=== PATIENT | female | born 1945 | race Caucasian/White ===

== ENCOUNTER → 2023-09-03 11:26 | Outpatient (REF) | payer MEDICARE, SELFPAY | LOC: WDC 11:26 | PROVIDERS: ATTENDING PHYSICIAN Surgery | DX: Z12.31 Encounter for screening mammogram for malignant neoplasm of breast (principal) | CPT/HCPCS: 77063; 77067 ==

== ENCOUNTER 2023-10-11 08:03 | Outpatient (RCR) | payer MEDICARE, SELFPAY | END 2023-10-11 23:59 | disposition home or self-care (01) | LOC: RPT 08:03 | PROVIDERS: ATTENDING PHYSICIAN Surgery | DX: C50.412 Malignant neoplasm of upper-outer quadrant of left female breast (principal); Z17.0 Estrogen receptor positive status [ER+]; M25.612 Stiffness of left shoulder, not elsewhere classified; R29.3 Abnormal posture; Z73.6 Limitation of activities due to disability | CPT/HCPCS: 97112; 97163; 97530 ==

== ENCOUNTER → 2023-11-14 11:07 | Outpatient (REF) | payer MEDICARE, SELFPAY ==
[2023-11-14 12:50] LABS: HDL Cholesterol 44 mg/dl; LDL Cholesterol, Calculated 47 mg/dl; Total Cholesterol 105 mg/dl (50-199); Triglyceride 71 mg/dl (10-149); Very Low Density Lipoprotein 14 mg/dl (0-30)
== END ==
LOC: REG 11:07
PROVIDERS: ATTENDING PHYSICIAN Internal Medicine Cardiovascular Disease
DX: E78.5 Hyperlipidemia, unspecified (principal)
CPT/HCPCS: 36415; 80061

== ENCOUNTER 2023-11-16 08:57 | Outpatient (RCR) | payer MEDICARE, SELFPAY | END 2023-11-16 23:59 | disposition home or self-care (01) | LOC: RPT 08:57 | PROVIDERS: ATTENDING PHYSICIAN Surgery | DX: M25.612 Stiffness of left shoulder, not elsewhere classified (principal); R29.3 Abnormal posture; Z73.6 Limitation of activities due to disability | CPT/HCPCS: 97112; 97140; 97530 ==

== ENCOUNTER 2023-12-12 09:51 | Outpatient (RCR) | payer MEDICARE, SELFPAY | END 2023-12-12 23:59 | disposition home or self-care (01) | LOC: RPT 09:51 | PROVIDERS: ATTENDING PHYSICIAN Surgery | DX: M25.612 Stiffness of left shoulder, not elsewhere classified (principal); R29.3 Abnormal posture; Z85.3 Personal history of malignant neoplasm of breast; Z73.6 Limitation of activities due to disability | CPT/HCPCS: 97110; 97140; 97530 ==

== ENCOUNTER 2024-01-15 13:11 | Outpatient (RCR) | payer MEDICARE, SELFPAY | END 2024-01-15 23:59 | disposition home or self-care (01) | LOC: RPT 13:11 | PROVIDERS: ATTENDING PHYSICIAN Surgery | DX: C50.412 Malignant neoplasm of upper-outer quadrant of left female breast (principal); M25.612 Stiffness of left shoulder, not elsewhere classified; R29.3 Abnormal posture; Z73.6 Limitation of activities due to disability | CPT/HCPCS: 97110; 97112; 97140; 97530 ==

== ENCOUNTER 2024-02-13 09:58 | Outpatient (RCR) | payer MEDICARE, SELFPAY | END 2024-02-13 23:59 | disposition home or self-care (01) | LOC: RPT 09:58 | PROVIDERS: ATTENDING PHYSICIAN Surgery | DX: M25.612 Stiffness of left shoulder, not elsewhere classified (principal); R29.3 Abnormal posture; C50.412 Malignant neoplasm of upper-outer quadrant of left female breast; Z85.3 Personal history of malignant neoplasm of breast; Z17.0 Estrogen receptor positive status [ER+]; Z73.6 Limitation of activities due to disability | CPT/HCPCS: 97110; 97112; 97530 ==

== ENCOUNTER 2024-03-12 09:51 | Outpatient (RCR) | payer MEDICARE, SELFPAY | END 2024-03-12 23:59 | disposition home or self-care (01) | LOC: RPT 09:51 | PROVIDERS: ATTENDING PHYSICIAN Surgery | DX: M25.612 Stiffness of left shoulder, not elsewhere classified (principal); R29.3 Abnormal posture; Z17.0 Estrogen receptor positive status [ER+]; Z85.3 Personal history of malignant neoplasm of breast; C50.412 Malignant neoplasm of upper-outer quadrant of left female breast; Z73.6 Limitation of activities due to disability | CPT/HCPCS: 97110; 97112; 97530 ==

== ENCOUNTER → 2024-04-11 10:58 | Outpatient (REF) | payer MEDICARE, SELFPAY ==
[2024-04-11 12:39] LABS: Blood Urea Nitrogen 15 mg/dl (7-17); Calcium 9.2 mg/dl (8.4-10.2); Carbon Dioxide 28 mmol/L (22-30); Chloride 102 mmol/L (98-107); Glucose 90 mg/dl (70-99); Potassium 4.2 mmol/L (3.5-5.1); Sodium 142 mmol/L (135-145); eGFR > 60.00
== END ==
LOC: REG 10:58
PROVIDERS: ATTENDING PHYSICIAN Internal Medicine Cardiovascular Disease
DX: R60.0 Localized edema (principal)
CPT/HCPCS: 36415; 80048

== ENCOUNTER 2024-04-16 11:56 | Outpatient (RCR) | payer MEDICARE, SELFPAY | END 2024-04-16 13:47 | disposition home or self-care (01) | LOC: RPT 11:56 | PROVIDERS: ATTENDING PHYSICIAN Surgery | DX: M25.612 Stiffness of left shoulder, not elsewhere classified (principal); R29.3 Abnormal posture; Z85.3 Personal history of malignant neoplasm of breast; I97.2 Postmastectomy lymphedema syndrome; Z73.6 Limitation of activities due to disability | CPT/HCPCS: 97110; 97112; 97530 ==

== ENCOUNTER → 2024-12-26 10:41 | Outpatient (REF) | payer MEDICARE, SELFPAY ==
[2024-12-26 11:58] LABS: Blood Urea Nitrogen 11 mg/dl (7-17); Calcium 9.3 mg/dl (8.4-10.2); Carbon Dioxide 31 mmol/L (22-30); Chloride 107 mmol/L (98-107); Glucose 92 mg/dl (70-99); HDL Cholesterol 46 mg/dl; LDL Cholesterol, Calculated 57 mg/dl; Potassium 4.4 mmol/L (3.5-5.1); Sodium 143 mmol/L (135-145); Very Low Density Lipoprotein 15 mg/dl (0-30); eGFR > 60.00
== END ==
LOC: REG 10:41
PROVIDERS: ATTENDING PHYSICIAN Student in an Organized Health Care Education/Training Program
DX: I10 Essential (primary) hypertension (principal); R60.0 Localized edema
CPT/HCPCS: 36415; 80048; 80061

== ENCOUNTER 2025-03-15 07:14 | Emergency (ER) | payer MEDICARE, SELFPAY ==
[2025-03-15 07:20] VITALS: BP 154/76
[2025-03-15 07:32] VITALS: BMI 30.4
[2025-03-15 07:59] LABS: Hematocrit 43.4 % (37.0-47.0); Hemoglobin 15.3 g/dL (12.0-16.0); Mean Corp Hgb Conc. 35.3 g/dL (33.0-37.0); Mean Corpuscular Volume 92.3 fL (81.0-99.0); Nucleated Red Blood Cells % 0 %; Platelet Count 139 10^3/uL (130-400); Red Cell Dist. Width 14.2 % (11.5-14.5)
[2025-03-15 08:18] LABS: ALT (SGPT) 33 U/L (0-35); AST (SGOT) 22 U/L (14-36); Albumin 4.5 g/dl (3.5-5.0); Alkaline Phosphatase 154 U/L (38-126); Blood Urea Nitrogen 12 mg/dl (7-17); Calcium 9.4 mg/dl (8.4-10.2); Carbon Dioxide 26 mmol/L (22-30); Chloride 107 mmol/L (98-107); Estimated Creatinine Clearance 85 ml/min; Glucose 126 mg/dl (70-99); Potassium 3.7 mmol/L (3.5-5.1); Sodium 141 mmol/L (135-145); Total Protein 6.8 g/dl (6.3-8.2); eGFR > 60.00
[2025-03-15 08:37] LABS: Urine Character Slightly Cloudy (Clear)
[2025-03-15 08:54] LABS: Urine Red Blood Cell >100 /HPF (0-2)
--- NOTE | 2025-03-15 09:08 | ED.GENMED ---
History of Present Illness
General
Chief Complaint: Vaginal Bleeding
Source: patient
Exam Limitations: none
Time Seen by Provider: 03/15/25 08:52
History of Present Illness
History of Present Illness:
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 Patient woke up this morning around 5 AM and noticed that she had blood in her underwear. She believes the bleeding is coming
from her vagina. She states every time she stands up she feels a blood 'gushing' out of her. The bleeding is described as bright red without any clots. She is also having some lower abdominal discomfort and urinary frequency. Last bowel movement
was yesterday. She denies any dizziness, syncope, chest pain, shortness of breath.
Past History
Past History
ED Past Medical History: HTN and Hypercholesterolemia
Social History
Tobacco: Non-smoker
Alcohol: None
Drug: None
Personal: Partner
Living: with family
Phy Exam
General Physical Exam
General Presentation: well appearing and no apparent distress
General Skin: warm and dry
General Habitus: normal
General Mental: alert
ENT Exam
ENT Exam: normocephalic
Pulmonary Exam
Pulmonary Exam: no respiratory distress
Gastrointestinal Exam
Gastrointestinal Exam: soft, non distended and other (Mild tenderness in suprapubic and LLQ. Abdomen soft, non-distended. No rebound or guarding.)
Stool: brown and other (Stool light brown on digital rectal exam. Small nonthrombosed external hemorrhoids present.)
Genitourinary Exam Female
Exam Female: other (Small-moderate amount of vaginal bleeding noted on speculum exam. )
Neurological Exam
Neurological Exam: alert
Eliza Coma Scale
Eye Opening: Spontaneous
Verbal Response: Oriented
Motor Response: Obeys Commands
GCS Total Score: 15
Skin Exam
Skin Exam: normal color and warm/dry
Psychiatric Exam
Psychiatric Exam: normal mood/affect
Course
Orders/Labs/Results
Orders:
Orders
03/15/25 07:38
Urinalysis Reflex To Culture Urgent
Date Specimen was Collected: 03/15/25
Time Specimen was Collected: 07:33
Urine Microscopic Reflex Cult Urgent
Urine Culture Urgent
ALEXIS Source: U
Specimen Description:
Date Specimen was Collected: 03/15/25
Time Specimen was Collected: 07:33
03/15/25 07:44
Complete Blood Count/With Diff Urgent
Comprehensive Metabolic Panel Urgent
03/15/25 09:07
US Pelvis Only (non-obstetric) Urgent
Reason For Exam: vaginal bleeding
03/15/25 11:23
Electrocardiogram (*1) Urgent
Reason for Study: Bradycardia / Tachycardia
EKG- Treatment ONCE
Abnormal Lab Results
03/15/25 03/15/25
07:38 07:44
MCH 32.6 H pg
(27.0-31.0)
Absolute Lymphs (auto) 0.8 L 10^3/uL
(1.2-3.4)
Absolute Monos (auto) 0.8 H 10^3/uL
(0.1-0.6)
Neutrophils % 78.1 H %
(42.2-75.2)
Lymphocytes % 9.4 L %
(20.5-51.1)
Monocytes % 9.8 H %
(1.7-9.3)
Glucose 126 H mg/dl
(70-99)
Total Bilirubin 2.4 H mg/dl
(0.2-1.3)
Alkaline Phosphatase 154 H U/L
(38-126)
Urine Ketones 1+ A
(Negative)
Ur Occult Blood Reflex 4+ A
(Negative)
Leukocyte Esterase Rfl 1+ A
(Negative)
Urine RBC >100 A /HPF
(0-2)
Urine Albumin (Reflex) 3+ A
(Neg - Trace)
03/15/25 07:44
03/15/25 07:44
Vital Signs
Initial and Last Documented VS:
Initial Vital Signs
Pulse Resp BP Pulse Ox
68 18 154/76 98
03/15/25 07:20 03/15/25 07:20 03/15/25 07:20 03/15/25 07:20
Last Documented Vital Signs
Temp Pulse Resp BP Pulse Ox
98.7 F 68 18 147/80 98
03/15/25 07:32 03/15/25 07:20 03/15/25 07:20 03/15/25 11:01 03/15/25 09:11
MDM/Problems Addressed
Differential Diagnosis Includes:
79yoF here with vaginal bleeding that began this morning. Feels like blood is gushing out when she is standing. Also c/o mild lower abd discomfort. She is hypertensive with otherwise stable vital signs. There is a moderate amount of bleeding noted
on speculum exam. Rectal exam shows light brown stool. Differential diagnosis includes but is not limited to: endometrial cancer, endometrial hyperplasia, atrophic vaginitis, acute blood loss anemia
Initial ED plan: Workup initiated by nursing staff prior to initial exam. Hemoglobin is stable at 15.3. Remainder of labs unremarkable. Hematuria noted on urinalysis without overt signs of infection. Will obtain pelvic ultrasound.
*Pulse Oximetry
SaO2: 98
Oxygen Mode of Delivery: Room air
Patient hypoxic: no
*Critical Care Note
Total Time (30-74mins, 75-104mins- exclusive of procedures): Not Applicable
Update Note
Update Note:
Ultrasound shows a thickened endometrial stripe of 2cm. Findings discussed with patient and reviewed need for outpatient biopsy/D&C to exclude malignancy. Patient reports changing her pad several times throughout ED stay. Upon clarification with
nursing, her pad is minimally saturated each time. Vitals remain stable. No indication for hospitalization. Discussed case with building construction inspector deputy court clerk, Dr. Stallworth, to expedite outpatient follow-up. OBGYN office will call patient tomorrow to
schedule this. Patient was advised to hold her Eliquis dosing for the next 3 days. EKG obtained today shows that she is in sinus rhythm and she has no documented history of A-fib. ED return precautions were reviewed including dizziness, syncope,
or heavy bleeding. Patient and son are in agreement with plan and patient was discharged in stable condition.
ED Attending Note
-
Portions of this chart may have been created with voice recognition software.� Occasional wrong word or��sound alike� substitutions may have occurred due to the inherent limitations of voice recognition software.
Discharge Plan
Departure
Patient Disposition: Home (Routine Discharge)
Date of Disposition: 03/15/25
Time of Disposition: 12:13
Patient with high blood pressure during this ER visit?: Yes
Discharge Problem:
Postmenopausal vaginal bleeding, Thickened endometrium
Instructions: Endometrial biopsy
Prescriptions:
No Action
metoprolol succinate 50 MG tablet extended release 24 hr
100 mg PO DAILY
ascorbic acid (vitamin C) [Vitamin C] 500 MG tablet
500 mg PO TID
potassium gluconate 500 MG tablet
500 mg PO BID
lisinopril 40 MG tablet
40 mg PO QPM
cyanocobalamin (vitamin B-12) 1,000 MCG tablet
1,000 mcg PO DAILY
atorvastatin [Lipitor] 40 MG tablet
40 mg PO HS Qty: 30 0RF
Eliquis 5 MG tablet
5 mg PO BID
guaifenesin 400 mg Tablet
400 mg PO PRN PRN (Reason: congestion)
nifedipine 30 mg Tablet Extended Release 24hr
30 mg PO DAILY
calcium carbonate [Calcium 600] 600 mg calcium (1,500 mg) Tablet
600 mg PO TID
magnesium 200 mg Tablet
400 mg PO DAILY
Referrals:
Anahy Stallworth MD [Active, Gynecology]
Norbert Wilde MD [Family Provider, Cardiology]
Activity Restrictions/Additional Instructions:
Stop taking your Eliquis for the next 3 days.
The gynecology office will be calling you tomorrow to schedule a follow-up appointment this week.
Return to the ER with any worsening symptoms including dizziness, passing out, or if you bleed through >2 pads/hour for >2 hours.
Interventions
Interventions:
*Risk Screen - Suicide Last Done: 03/15/25 08:00
*General Assessment Last Done: 03/15/25 08:00
*Neglect/Abuse Screening Last Done: 03/15/25 08:00
*ED- Fall Risk Assessment Last Done: 03/15/25 08:00
ED-Female Genitourinary Assessment Last Done: 03/15/25 07:52
Discharge Date and Time
Print Language: GREEK
[2025-03-15 11:01] VITALS: BP 147/80
[2025-03-15 12:15] VITALS: BP 142/68
== END 2025-03-15 12:15 | disposition home or self-care (01) ==
LOC: EMR 07:14
PROVIDERS: Emergency Medicine; EMERGENCY PHYSICIAN Emergency Medicine; FAMILY PHYSICIAN Student in an Organized Health Care Education/Training Program
DX: N95.0 Postmenopausal bleeding (principal); R93.89 Abnormal findings on diagnostic imaging of other specified body structures; K64.4 Residual hemorrhoidal skin tags; I10 Essential (primary) hypertension; E78.00 Pure hypercholesterolemia, unspecified; Z79.01 Long term (current) use of anticoagulants; Z86.73 Personal history of transient ischemic attack (TIA), and cerebral infarction without residual deficits
CPT/HCPCS: 99284; 76856; 80053; 81003; 81015; 85025; 87086; 93005

== ENCOUNTER 2025-04-23 06:26 | Day surgery (SDC) | payer MEDICARE, SELFPAY ==
--- NOTE | 2025-04-17 11:28 | PTCARENOTE ---
Abnormal ECG showing afib, ECG dated 10/03/22 shows previous history of afib.
[2025-04-23 08:55] VITALS: BMI 31.7
[2025-04-23 08:58] VITALS: BMI 31.7
[2025-04-23 09:02] VITALS: BP 179/86
[2025-04-23] MEDS: TYLENOL 1000 MG PO (09:05)
[2025-04-23] MEDS: NORMOSOL-R/PLASMALYTE-A 1000 IV (09:15)
[2025-04-23 10:32] VITALS: BP 125/83
[2025-04-23 10:45] VITALS: BP 145/78
--- NOTE | 2025-04-23 10:52 | W.IMMPOSTOP ---
Surgical Immed Post Op Note
-
Primary Surgeon: MD Suha
Assisting Surgeon: N/A
Pre-op Diagnosis: AUB
Post-op Diagnosis: AUB, polyp
Procedure Performed: Dilation and curettage, hysteroscopy, polypectomy
Anesthesia Type: TIVA
Specimen / Cultures: EMC, and endometrial polyp
Estimated Blood Loss: 5cc
Complications: none apparent
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 cervix normal in appearance. no masses or erythema noted. multiple endometrial polyps noted and removed, hysteroscopically.
[2025-04-23 11:00] VITALS: BP 161/81
[2025-04-23] MEDS: MOTRIN 600 MG PO (11:00)
[2025-04-23] MEDS: TYLENOL 650 MG PO (12:06)
--- NOTE | 2025-04-23 18:06 | OR.RPT ---
Operative Report
Operative Report
Patient: Cheyenne Cramer
: 1945

Date of surgery: 04/23/2025
Preoperative diagnosis:
1. Abnormal uterine bleeding
2. Postmenopausal bleeding
3. Endometrial polyp
Postoperative diagnosis: Same as above
Procedure: Hysteroscopy, dilation and curettage, and polypectomy
Surgeon: eJnnifer Borden MD
EBL: 5 cc
Intraoperative fluid deficit: 175 cc
Urine output: 100 cc
Findings: Normal-appearing external female genitalia with appearance of scarring due to lichen sclerosis. Vagina without masses or erythema. Cervix appears normal. Anteverted uterus on bimanual exam. Uterus sounded to 8 cm. Bilateral tubal ostia
seen on hysteroscopy. Multiple uterine polyps seen on hysteroscopy.
Complications: None
Indications and consent: The patient is a 80-year-old female who presents with postmenopausal bleeding. Risks, benefits, and alternatives for treatment were discussed with the patient, and all her questions were answered regarding the planned
procedure. She agreed to proceed.
Procedure: The patient was taken to the operating room where she was placed under total IV anesthesia. She was placed in the dorsal lithotomy position with stirrups. She was prepped and draped in the normal sterile fashion. Bladder was drained
with a straight catheterization for 100 cc of urine. A weighted speculum was placed into the posterior vagina and a double-sided retractor placed anteriorly to allow for visualization of the cervix. The cervix was grasped with a single-tooth
tenaculum at the anterior lip. The uterus was sounded to 8 cm. The cervix was dilated to accommodate the hysteroscope. The hysteroscope was inserted after adequate dilation was obtained. Findings at time of insertion included above.
Resectoscope was introduced through the hysteroscope allowing for removal of multiple polyps under direct visualization.
Curettage was then performed until a gritty texture was noted throughout. Hemostasis from the uterus was noted. The single-tooth tenaculum was removed and hemostasis of the tenaculum sites noted. All counts were correct and all instruments were
removed from the vagina. The patient was awakened and taken to the recovery room in stable condition.
== END 2025-04-23 12:10 | disposition home or self-care (01) ==
LOC: SDS 06:26
PROVIDERS: ATTENDING PHYSICIAN Obstetrics & Gynecology
DX: N84.0 Polyp of corpus uteri (principal); N95.0 Postmenopausal bleeding; N93.8 Other specified abnormal uterine and vaginal bleeding
CPT/HCPCS: 58558; 88305